=== PATIENT | male | born 1950 | race Caucasian/White ===

== ENCOUNTER → 2016-10-09 | Outpatient (CLI) | payer MEDICARE, OTHER ==
--- NOTE | 2016-10-09 12:05 | RADRPT ---
EXAM DATE/TIME: 10/09/2016 08:25 [place] COMPARISON: No previous studies available for comparison. INDICATIONS : Aortic stenosis. Abnormal EKG. DOSE: 27.3 mCi Tc99m Myoview at stress 8.1 mCi Tc99m Myoview at rest REST HEART RATE: 61 BPM TARGET HEART RATE: 131 BPM MAX HEART RATE: 170 BPM REST BLOOD PRESSURE: 144/72 mmHg MAX BLOOD PRESSURE: 164/90 mmHg EJECTION FRACTION: 41% MEDICAL HISTORY : Hypertension. SURGICAL HISTORY : Left shoulder and knee syrgery. ENCOUNTER: Initial ACUITY: 3 days PAIN SCALE: 3/10 LOCATION: Bilateral chest TECHNIQUE: The patient underwent upright treadmill exercise in the chest pain center. Continuous ECG tracing wa s monitored during stress. Gated SPECT imaging was performed after stress, and conventional SPECT im aging was performed at rest. The examination was performed on a SPECT/CT scanner, both attenuation-c orrected and non-corrected datasets were reviewed. FINDINGS: DISTRIBUTION: The maximum perfused segment at stress is in the septal wall. PERFUSION STUDY: The pattern of perfusion at stress is within normal limits. There is a focal fixed defect at the apex . GATED STUDY: There is some global hypokinesis of the ventricle. CONCLUSION: 1. No evidence to suggest ischemic myocardial changes. 2. Fixed focal defect at the apex. 3. Mild global hypokinesis. RISK CATEGORY: Low Davis Moreno MD on October 09, 2016 at 12:01 Board Certified Radiologist. This report was verified electronically.
--- NOTE | 2016-10-09 17:21 | TR ---
Date Performed: 10/09/2016 Time Performed: 09:14:51 DOCTOR: Abbi Wiley DRUG LIST: CLINICAL HISTORY: ABNORMAL EKG REASON FOR TEST: REASON FOR ENDING: OBSERVATION: CONCLUSION: MODIFIED JESSICA PROTOCOL NUCLEAR ETT. NO CP. PATIENT BECAME SOB AT THE END OF THE ERIN T.Maximum VF=594 Max HR Bsuuwdvh=937.0% Maximum GX=779/90 Total Exercise Time=15:40 COMMENTS:
== END ==
LOC: HRAD 07:01
PROVIDERS: ATTEND Internal Medicine Cardiovascular Disease
DX: I35.0 Nonrheumatic aortic (valve) stenosis (principal); R94.31 Abnormal electrocardiogram [ECG] [EKG]
CPT/HCPCS: 78452; 93017; A9502